=== PATIENT | female | born 1945 | race Caucasian/White ===

== ENCOUNTER → 2019-01-06 | Outpatient (REF) | payer MEDICARE ==
[~2019-01-06] MED LIST: ALLEGRA-D 2424 HOUR PO; AMLODIPINE10 MG PO; AMOXICILLIN/CL875 MG OR; AMOXICILLIN/CL875 MG PO; ASPIRIN LOW DOS81 M2 PO; AUGMENTIN500TAB PO; BACTRIM DS1 TAB PO; CHERATUSSIN OR; CIPRO750 MG PO; CIPROFLOXACN500 MG PO; CORTISPORIN OTI10 ML AD; DIFLUCAN100 MG PO; FLAGYL500 MG PO; FLONASE NASAL50 MCG; FLORASTOR250 M1 PO; FLOVENT HFA44 MCG IN; KEFLEX500 M1 PO; LANSOPRAZOLE30 MG PO; LOPRESSOR25 MG PO; LOPRESSOR50 M1 PO; LORAZEPAM0.5 MG PO; LORTAB 5 OR; MEDDOSEPAK PO; METOPROL TAR25 MG PO; METRONIDAZOL500 MG PO; MUCINEX1200 MG OR; NASONEX50 MCG/AC NAB; NORVASC10 M1 PO; OMEPRAZOLE20 MG PO; ONDANSETRON4 MG PO; PRILOSEC20 MG PO; PROAIR HFA IN; PROVENTIL HFA IN; ZPAK PO; ZYRTEC-D ALG PO
[2019-01-06 09:05] LABS: HEMATOCRIT 40.4 % (37.0-47.0); HEMOGLOBIN 12.9 g/dl (12.0-16.0); IMMATURE GRANULOCYTES 0.2 % (0.0-5.0); MEAN CELL VOLUME 94.6 fL CALC (80.0-100.0); MEAN CORPUSCULAR HGB 30.2 pG CALC (26.0-32.0); MEAN CORPUSCULAR HGB CONC 31.9 g/L CALC (32.0-36.0); NEUT# 3.23 thou/uL (2.00-7.15); RED BLOOD COUNT 4.27 mill/uL (4.20-5.60); RED CELL DISTRI WIDTH 14.3 % (11.5-15.5)
[2019-01-06 09:31] LABS: ALBUMIN 3.9 g/dL (3.2-5.0); ALKALINE PHOSPHATASE 88 u/l (38-126); ANION GAP 12 (6-22 (CALC)); BILIRUBIN, TOTAL 0.8 mg/dL (0.0-1.4); BUN 17 mg/dL (8-23); BUN/CREATININE RATIO 19 (12-20 (CALC)); CALCULATED LDLCHOLESTEROL 119 mg/dL (62-129 (CALC)); CARBON DIOXIDE 28 mmol/l (22-30); CHLORIDE 105 mmol/l (95-108); CHOLESTEROL HDL RATIO 3.4 (<4.4 (CALC)); CREATININE 0.9 mg/dL (0.5-1.0); GFR > 60 ML/MIN (>=60 (CALC)); GFR FOR AFR.AMER. > 60 ML/MIN (>=60 (CALC)); HDL CHOLESTEROL 59 mg/dL (>=40); POTASSIUM 3.9 mmol/l (3.5-5.1); SGOT/AST 33 u/l (9-36); SODIUM 141 mmol/l (137-146); TOTAL CHOLESTEROL 198 mg/dl (0-199); TOTAL PROTEIN 6.6 g/dL (6.3-8.2); TOTAL TRIGLYCERIDES 101 mg/dl (30-149); VLDL CHOLESTROL 20 mg/dl (0-48 (CALC))
== END | disposition home or self-care (01) ==
LOC: LAB 08:12
PROVIDERS: ATTEND Internal Medicine Geriatric Medicine
DX: I10 Essential (primary) hypertension (principal)

== ENCOUNTER 2019-11-13 | Emergency (ER) | payer MEDICARE ==
[2019-11-13 13:01] LABS: URINE BILIRUBIN - DIPSTICK NEGATIVE (NEGATIVE); URINE BLOOD DIPSTICK SMALL (NEGATIVE); URINE COLOR YELLOW; URINE GLUCOSE - DIPSTICK NEGATIVE (NEGATIVE); URINE KETONE NEGATIVE (NEGATIVE); URINE LEUK ESTERASE TRACE (NEGATIVE); URINE NITRITE - DIPSTICK NEGATIVE (Negative); URINE PH 5.5 (4.5-8.0); URINE PROTEIN - DIPSTICK NEGATIVE (NEG-TRACE); URINE SPECIFIC GRAVITY 1.015; URINE UROBILINOGEN - DIPSTICK 0.2 E.U./dL (0.2)
[2019-11-13 13:38] LABS: URINE SQUAMOUS EPITHELIAL CELL FEW EPI/hpf (0-FEW)
[2019-11-13] MEDS ORDERED: AMOXICILLIN875 MG PO (14:07)
[2019-11-13] MEDS ORDERED: ZOFRAN4 MG/TAB PO (14:07)
== END 2019-11-13 14:17 | disposition home or self-care (01) ==
DX: N39.0 Urinary tract infection, site not specified (principal); J02.9 Acute pharyngitis, unspecified; R50.9 Fever, unspecified; I10 Essential (primary) hypertension

== ENCOUNTER 2020-02-11 | Emergency (ER) | payer MEDICARE ==
[~2020-02-11] MED LIST changes: +AMOXICILLIN875 MG PO; +ZOFRAN4 MG/TAB PO
[2020-02-11 19:11] LABS: HEMATOCRIT 37.6 % (37.0-47.0); HEMOGLOBIN 12.4 g/dl (12.0-16.0); IMMATURE GRANULOCYTES 0.4 % (0.0-5.0); MEAN CELL VOLUME 93.5 fL CALC (80.0-100.0); MEAN CORPUSCULAR HGB 30.8 pG CALC (26.0-32.0); NEUT# 6.46 thou/uL (2.00-7.15); RED BLOOD COUNT 4.02 mill/uL (4.20-5.60); RED CELL DISTRI WIDTH 14.6 % (11.5-15.5)
[2020-02-11 19:13] LABS: URINE BILIRUBIN - DIPSTICK NEGATIVE (NEGATIVE); URINE BLOOD DIPSTICK LARGE (NEGATIVE); URINE COLOR YELLOW; URINE GLUCOSE - DIPSTICK NEGATIVE (NEGATIVE); URINE KETONE TRACE mg/dL (NEGATIVE); URINE PROTEIN - DIPSTICK 100 mg/dL (NEG-TRACE); URINE SPECIFIC GRAVITY >=1.030; URINE UROBILINOGEN - DIPSTICK 0.2 E.U./dL (0.2)
[2020-02-11 19:14] LABS: URINE LEUK ESTERASE SMALL (NEGATIVE); URINE NITRITE - DIPSTICK POSITIVE (Negative)
[2020-02-11 19:31] LABS: URINE BACTERIA MODERATE hpf; URINE RBC TNTC RBC/hpf (0-5); URINE SQUAMOUS EPITHELIAL CELL FEW EPI/hpf (0-FEW)
[2020-02-11 19:31] LABS: PROTHROMBIN TIME 10.8 SECONDS (9.0-12.5)
[2020-02-11 20:09] LABS: ALBUMIN 3.6 g/dL (3.2-5.0); ALKALINE PHOSPHATASE 112 u/l (38-126); ANION GAP 11 (6-22 (CALC)); BILIRUBIN, TOTAL 0.8 mg/dL (0.0-1.4); BUN 21 mg/dL (8-23); BUN/CREATININE RATIO 26 (12-20 (CALC)); CARBON DIOXIDE 24 mmol/l (22-30); CHLORIDE 103 mmol/l (95-108); CREATININE 0.8 mg/dL (0.5-1.0); GFR > 60 ML/MIN (>=60 (CALC)); GFR FOR AFR.AMER. > 60 ML/MIN (>=60 (CALC)); LIPASE 257 u/l (23-300); POTASSIUM 3.9 mmol/l (3.5-5.1); SGOT/AST 43 u/l (9-36); SODIUM 134 mmol/l (137-146); TOTAL PROTEIN 6.9 g/dL (6.3-8.2)
[2020-02-11] MEDS ORDERED: BACTRIM DS1 TAB PO (20:28)
[2020-02-11] MEDS ORDERED: ELIQUIS2.5 MG (20:35)
--- NOTE | 2020-02-14 09:14 | NUR ---
Notifed patient of Covid results (Negative). Advised patient to follow up with PCP or return to ED for urgent needs. Advised patient to continue practicing Covid prevention. Patient verbalized understanding.
== END 2020-02-11 20:50 | disposition home or self-care (01) ==
PROVIDERS: Family Medicine
DX: N39.0 Urinary tract infection, site not specified (principal); I10 Essential (primary) hypertension; B96.20 Unspecified Escherichia coli [E. coli] as the cause of diseases classified elsewhere; Z20.828 Contact with and (suspected) exposure to other viral communicable diseases

== ENCOUNTER 2021-03-01 11:04 | Emergency (ER) | payer MEDICARE ==
[~2021-03-01] VITALS: Ht 157.5 cm; Wt 95.0 kg
[~2021-03-01 11:04] MED LIST changes: +ELIQUIS2.5 MG PO
[2021-03-01] MEDS ORDERED: RED YEAST RICE600 MG PO (11:47)
[2021-03-01] MEDS ORDERED: CALCIUM + D3 601 TAB PO (11:49)
[2021-03-01] MEDS ORDERED: MULTIVITAMIN1 TA1 PO (11:49)
[2021-03-01] MEDS ORDERED: GLUCOSAMI11 PO (11:50)
[2021-03-01] MEDS ORDERED: B121000 MCG PO (11:51)
[2021-03-01] MEDS ORDERED: FIBER FORMULA PO (11:52)
[2021-03-01] MEDS ORDERED: STOOL SOFTNR PO (11:53)
[2021-03-01 12:01] LABS: URINE BLOOD DIPSTICK LARGE (NEGATIVE); URINE GLUCOSE - DIPSTICK NEGATIVE (NEGATIVE); URINE KETONE TRACE mg/dL (NEGATIVE); URINE PH 5.5 (4.5-8.0); URINE PROTEIN - DIPSTICK >=300 mg/dL (NEG-TRACE); URINE SPECIFIC GRAVITY 1.025
[2021-03-01 12:03] LABS: URINE BILIRUBIN - DIPSTICK MODERATE (NEGATIVE); URINE COLOR BROWN; URINE LEUK ESTERASE MODERATE (NEGATIVE); URINE NITRITE - DIPSTICK POSITIVE (Negative)
[2021-03-01 12:04] LABS: URINE BACTERIA MANY hpf; URINE EPITHELIAL CELLS MANY EPI/hpf (0-FEW); URINE RBC 50-100 RBC/hpf (0-5)
[2021-03-01] MEDS ORDERED: OMNI-PAC300 MG PO (12:08)
[2021-03-01 12:35] LABS: HEMATOCRIT 46.9 % (37.0-47.0); HEMOGLOBIN 14.8 g/dl (12.0-16.0); IMMATURE GRANULOCYTES 0.2 % (0.0-5.0); MEAN CELL VOLUME 93.4 fL CALC (80.0-100.0); MEAN CORPUSCULAR HGB 29.5 pG CALC (26.0-32.0); MEAN CORPUSCULAR HGB CONC 31.6 g/dL CAL (32.0-36.0); NEUT# 6.4 thou/uL (2.00-7.15); RED BLOOD COUNT 5.02 mill/uL (4.20-5.60); RED CELL DISTRI WIDTH 13.9 % (11.5-15.5)
[2021-03-01 13:00] LABS: ALBUMIN 4.2 g/dL (3.2-5.0); ALKALINE PHOSPHATASE 125 u/l (38-126); ANION GAP 11 (6-22 (CALC)); BILIRUBIN, TOTAL 0.9 mg/dL (0.0-1.4); BUN 17 mg/dL (8-23); BUN/CREATININE RATIO 18 (12-20 (CALC)); CARBON DIOXIDE 31 mmol/l (22-30); CHLORIDE 102 mmol/l (95-108); CPK 30 u/l (30-165); CREATININE 0.9 mg/dL (0.5-1.0); GFR > 60 ML/MIN (>=60 (CALC)); GFR FOR AFR.AMER. > 60 ML/MIN (>=60 (CALC)); POTASSIUM 4.4 mmol/l (3.5-5.1); SGOT/AST 45 u/l (9-36); SODIUM 140 mmol/l (137-146)
[2021-03-01 13:01] LABS: TOTAL PROTEIN 8.3 g/dL (6.3-8.2)
[2021-03-01 13:20] VITALS: BP 157/83
== END 2021-03-01 13:20 | disposition home or self-care (01) ==
LOC: ED 11:04
PROVIDERS: Family Medicine
DX: N39.0 Urinary tract infection, site not specified (principal); I10 Essential (primary) hypertension; K21.9 Gastro-esophageal reflux disease without esophagitis; I48.91 Unspecified atrial fibrillation

== ENCOUNTER 2024-06-04 09:30 | Emergency (ER) | payer MEDICARE ==
[2024-06-04] VITALS (10 sets, daily range): BP systolic 110–155; BP diastolic 57–81
[~2024-06-04] VITALS: Ht 157.5 cm; Wt 89.3 kg
[~2024-06-04 09:30] MED LIST changes: +B121000 MCG PO; +CALCIUM + D3 601 TAB PO; +FIBER FORMULA PO; +GLUCOSAMI11 PO; +MULTIVITAMIN1 TA1 PO; +OMNI-PAC300 MG PO; +RED YEAST RICE600 MG PO; +STOOL SOFTNR PO
[2024-06-04] MEDS ORDERED: SODIUM CHLORIDE 0.9% 1,000 ML IV ONE (09:50)
[2024-06-04] MEDS ORDERED: STROMECTOL3 MG PO (09:59)
[2024-06-04 10:25] LABS: BASO% 0.4 % (0-3); EOS% 9.3 % (0-8); HEMATOCRIT 42.9 % (37.0-47.0); HEMOGLOBIN 13.4 g/dl (12.0-16.0); IMMATURE GRANULOCYTES 0.1 % (0.0-5.0); LYMPH% 13.9 % (15-41); MEAN CELL VOLUME 96.6 fL CALC (80.0-100.0); MEAN CORPUSCULAR HGB 30.2 pG CALC (26.0-32.0); MEAN CORPUSCULAR HGB CONC 31.2 g/dL CAL (32.0-36.0); MONO% 8.9 % (2-13); NEUT# 4.97 thou/uL (2.00-7.15); NEUT% 67.4 % (42-76); RED BLOOD COUNT 4.44 mill/uL (4.20-5.60); RED CELL DISTRI WIDTH 13.7 % (11.5-15.5)
[2024-06-04 10:33] LABS: ALBUMIN 3.9 g/dL (3.2-5.0); BILIRUBIN, TOTAL 0.6 mg/dL (0.02-1.3); POTASSIUM 3.8 mmol/l (3.5-5.1); TOTAL PROTEIN 7.3 g/dL (6.3-8.2)
[2024-06-04] MEDS ORDERED: PERMETHRIN5 % EX (11:34)
== END 2024-06-04 11:48 | disposition home or self-care (01) ==
LOC: ED 09:30
PROVIDERS: Family Medicine
DX: B86 Scabies (principal); I10 Essential (primary) hypertension; I48.91 Unspecified atrial fibrillation; K21.9 Gastro-esophageal reflux disease without esophagitis; E78.00 Pure hypercholesterolemia, unspecified